=== PATIENT | female | born 2000 | race Caucasian/White ===

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

== ENCOUNTER 2020-11-17 13:21 | Emergency (ER) | payer MEDICAID, OTHER ==
[~2020-11-17] VITALS: Ht 157.5 cm; Wt 86.2 kg
[2020-11-17 13:35] VITALS: BP 146/93
--- NOTE | 2020-11-17 13:40 | NUR ---
ARRIVAL PATIENT ARRIVED TO ED8 AMBULATORY, C/O VAGINAL BLEEDING FOR THE PAST 3 DAYS, DID HAVE A POSITIVE AT THE [facility] THIS LAST WEEK, WITH LMP BEING October, HAS PASSED 3-4 BLOOD CLOTS TODAY, DECIDED TO COME TO THE ED FOR EVAL, DOCTOR AU NOTIFIED OF PATIENT'S ARRIVAL.
[2020-11-17 13:43] LABS: BILIRUBIN,URINE NEGATIVE (NEGATIVE); UA COLOR YELLOW; UROBILINOGEN,URINE 0.2 E.U./dL (0.2)
[2020-11-17 14:35] VITALS: BP 146/74
--- NOTE | 2020-11-17 15:12 | ER.PDOC ---
General Chief Complaint: less 20 wks Stated Complaint: 4 WKS PREG; BLEEDING Time seen by MD: 13:40 Source: patient Exam Limitations: no limitations History of Present Illness Initial Comments [id number] female comes in with complaint of spotting. It started yesterday. She does denies any pain with this. In fact she denies any genitourinary complaints except for the spotting. She states that she is 4 weeks by dates. She had a positive test that she did just last week. 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 I recommended that with the spotting she needs to see them much sooner. She does not know her blood type and Rh so we will check that and will check a beta hCG and a UA. She has no other symptomatology at all except for the spotting Timing/Duration: this morning Severity/Quality: mild Vaginal Bleed: abnormal bleeding, spotting Test: home Care: none Sexual [place] History: single partner Contraceptive: none Associated Symptoms: denies symptoms Allergies: Coded Allergies: No Known Allergies (Unverified , 11/17/20) Past Medical History Medical History: no pertinent history Surgical History: no surgical history Social History Smoking: non-smoker Alcohol Use: none Drug Use: none Review of Systems Genitourinary: see HPI All Other Systems: Reviewed and Negative Physical Exam General Appearance: No Apparent Distress, WD/WN EENT: eyes nml inspection, nml ENT inspection, pharynx nml Neck: nml inspection, non-tender Cardiovascular/Respiratory: Regular Rate, Rhythm, No M/R/G, Normal Peripheral Pulses, No JVD, Normal Breath Sounds, No Respiratory Distress Abdomen: Normal Bowel Sounds, Non Tender, Soft, No Organomegaly, No Pulsatile Mass Extremities: Normal Range of Motion, Non-Tender, Normal Inspection, No Pedal Edema, No Calf Tenderness, Normal Capillary Refill 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, No Motor/Sensory Deficits, Alert, Normal Mood/Affect, Oriented x 3 Skin: Normal Color, Warm/Dry Lymphatic: No Adenopathy Results/Orders Results/Orders Orders - PREM AU MD Urinalysis (11/17/20 13:29) Hcg Urine (11/17/20 13:29) Abo/Rh Type (11/17/20 13:41) Hcg, Quantitative (11/17/20 13:41) Urine Culture (11/17/20 13:29) Vital Signs Date Time Temp Pulse Resp B/P (MAP) Pulse Ox O2 Delivery O2 Flow Rate FiO2 11/17/20 14:35 98.6 81 18 146/74 (98) 99 Room Air 11/17/20 13:35 98.6 80 18 96 11/17/20 13:35 98.6 80 18 11/17/20 13:35 98.6 80 18 146/93 (110) 96 Room Air Laboratory Tests Test 11/17/20 13:29 11/17/20 13:56 Urine Collection Type RANDOM Urine Color YELLOW Urine Appearance CLEAR Urine Bilirubin NEGATIVE (NEGATIVE) Urine Ketones NEGATIVE (NEGATIVE) Urine Specific [place] 1.025 (1.005-1.030) Urine pH 6.5 (4.5-8.0) Urine Protein NEGATIVE (NEGATIVE) Urine Urobilinogen 0.2 E.U./dL (0.2) Urine Nitrate NEGATIVE (NEGATIVE) Urine Leukocyte Esterase SMALL (NEGATIVE) H Urine Glucose (Auto)(UA) NEGATIVE (NEGATIVE) Urine Blood LARGE (NEGATIVE) H Urine RBC 0-2 RBC/HPF (NONE SEEN) Urine WBC 10-25 WBC/HPF (0-2) H Urine Squamous Epithelial Cells MANY #/HPF (FEW) Urine Bacteria FEW (NONE SEEN) H Urine HCG, Qualitative POSITIVE (NEGATIVE) Human Chorionic Gonadotropin, Quant 3512 mIU/mL Blood Bank Test 11/17/20 13:56 Blood Type A POSITIVE Progress Progress Diagnostic studies: Her beta hCG is 3212 which is consistent with her dates. With a normal range of 800-10,000.This 66-year-old female comes in with a complaint of chest pain that started about 6:00 this morning it was tightness or pressure across her chest with aching in her jaw. This started about 6 AM this morning and has been fairly constant at about a 5 on a 10 scale. She stated that it gotten into her shoulders and down her arms about to the elbow shortly after arriving here. I gave her a nitro at 07 37. And0-2 RBCs.And her blood type is a positive.Patient was instructed to follow-up with her OB GEN doctor this week. We will place her on Macrodantin for 5 days for this possible bladder infection. ER DEPART Departure Time of Disposition: 15:11 Disposition: 01 HOME / SELF CARE / HOMELESS Impression: Primary Impression: Threatened Additional Impression: Urinary tract infection Condition: Improved Referrals: SONIA STONE PA-C (PCP) PRIMARY CARE PROVIDER Comments Macrodantin 100 mg twice daily x5 days Duration or Time Spent with Pa: 15m Problem Qualifiers PREM AU MD Nov 17, 2020 15:12
== END 2020-11-17 15:14 | disposition home or self-care (01) ==
LOC: ER 13:30
DX: O23.41 Unspecified infection of urinary tract in pregnancy, first trimester (principal); O20.0 Threatened abortion; Z3A.01 Less than 8 weeks gestation of pregnancy
CPT/HCPCS: 36415; 81001; 81025; 84702; 86900; 87086; 99283

== ENCOUNTER 2022-06-05 14:15 | Emergency (ER) | payer OTHER ==
[~2022-06-05] VITALS: Ht 157.5 cm; Wt 80.7 kg
[2022-06-05 14:18] VITALS: BP 127/72
--- NOTE | 2022-06-05 14:18 | NUR ---
ARRIVAL PATIENT ARRIVED TO ED5 AMBULATORY, C/O RIGHT SIDED NECK AND LEFT SHOULDER PAIN SINCE GETTING OUT OF BED THIS MORNING, DID TAKE TYLENOL BUT UNSURE OF ABOUT WHAT TIME, PAIN WITH RANGE OF MOTION, DECIDED TO COME TO THE ED FOR EVAL, VITAL SIGNS TAKEN AND DOCTOR NOTIFIED OF PATIENT'S ARRIVAL.
[2022-06-05] MEDS ORDERED: TORADOL ONE (15:03)
[2022-06-05] MEDS ORDERED: ROBAXIN ONE (15:03)
[2022-06-05] MEDS ORDERED: BENADRYL ONE (15:03)
[2022-06-05] MEDS: TORADOL IM STA (15:10)
[2022-06-05] MEDS: ROBAXIN PO STA (15:10)
[2022-06-05] MEDS: BENADRYL IM STA (15:10)
[2022-06-05] MEDS ORDERED: ZOFRAN ODT ONE (15:45)
[2022-06-05] MEDS ORDERED: LIDODERM TP ONE (15:45)
[2022-06-05] MEDS ORDERED: NORCO 5MG PO ONE (15:46)
[2022-06-05] MEDS: ZOFRAN ODT SL STA (15:50)
[2022-06-05] MEDS: LIDODERM TP STA (15:50)
[2022-06-05] MEDS: NORCO 5MG PO STA (15:51)
[2022-06-05] MEDS: COGENTIN IM STA (16:22)
--- NOTE | 2022-06-05 16:39 | ER.PDOC ---
General Chief Complaint: Neck/Upper back Pain Stated Complaint: NECK/SHOULDER PAIN Time seen by MD: 14:20 Source: patient Exam Limitations: no limitations History of Present Illness Initial Comments Patient is a 22-year-old femaleWith a past medical history of anxiety depression a and a tubal who comes in with torticollis directed towards the left with the pain on the right of her neck and shoulders that she woke up with this morning. Patient states that it is a 7 out of 10 it is a sort of sharp in nature pain made worse when she tries to move her neck and nothing makes it better. She denies any other symptoms or concerns at this time. Allergies: Coded Allergies: No Known Allergies (Unverified , 11/17/20) Past Medical History Medical History: no pertinent history Surgical History: , tubal Family History Significant Family History: no pertinent family hx Social History Smoking: non-smoker Alcohol Use: none Drug Use: none Reviewed Nursing Reviewed: Vital Signs, Abn. Noted, Nursing Assessment Review of Systems Constitutional: no symptoms reported EENTM: no symptoms reported Respiratory: no symptoms reported Cardiovascular: no symptoms reported Gastrointestinal: no symptoms reported Genitourinary: no symptoms reported Musculoskeletal: muscle pain, muscle stiffness, neck pain Skin: no symptoms reported Psychiatric/Neurological: no symptoms reported Physical Exam General Appearance: Anxious HEENT: PERRL/EOMI, Normal ENT Inspection, TMs Normal, Pharynx Normal Neck: Other (Torticollis directed the patient's left with pain on the right definitely can palpate muscle spasms of the right-sided trapezius muscle) Cardiovascular/Respiratory: Regular Rate, Rhythm, No M/R/G, Normal Peripheral Pulses, No JVD, Normal Breath Sounds, No Respiratory Distress Gastrointestinal: Normal Bowel Sounds, No Organomegaly, No Pulsatile Mass, Non Tender, Soft Back: Normal Inspection, No CVA Tenderness, No Vertebral Tenderness Extremities: No Evidence of Injury, Normal Range of Motion, Non-Tender, No Pedal Edema, Pelvis Stable Neuro/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: Alert, 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, mood/effect nml, No Motor/Sensory Deficits, Relexes nml Skin: Normal Color, Warm/Dry Results/Orders Results/Orders Orders - ELISHA DENISE MD Ketorolac Tromethamine (Toradol) (06/05/22 14:50) Diphenhydramine Hcl (Benadryl) (06/05/22 14:50) Methocarbamol (Robaxin) (06/05/22 14:50) Diphenhydramine Hcl (Benadryl) (06/05/22 15:03) Methocarbamol (Robaxin) (06/05/22 15:03) Ketorolac Tromethamine (Toradol) (06/05/22 15:03) Hydrocodone/Acetaminophen ([place] 5mg) (06/05/22 15:37) Ondansetron (Zofran Odt) (06/05/22 15:37) Lidocaine (Lidoderm) (06/05/22 15:37) Lidocaine (Lidoderm) (06/05/22 15:45) Ondansetron (Zofran Odt) (06/05/22 15:45) Hydrocodone/Acetaminophen ([place] 5mg) (06/05/22 15:46) Benztropine Mesylate (Cogentin) (06/05/22 16:01) Vital Signs Date Time Temp Pulse Resp B/P (MAP) Pulse Ox O2 Delivery O2 Flow Rate FiO2 06/05/22 14:18 97.8 101 20 100 06/05/22 14:18 97.8 101 20 127/72 (90) 100 Room Air* 0 21 06/05/22 14:18 97.8 101 20 Administered Medications Medications (Trade) Dose Ordered Sig/Isabell Route PRN Reason Start Time Stop Time Status Last Admin Dose Admin Acetaminophen/ Hydrocodone Bitart ([place] 5mg) 1 ea OT STAT PO 06/05/22 15:37 06/05/22 15:40 DC 06/05/22 15:51 1 EA Benztropine Mesylate (Cogentin) 2 mg STAT STAT IM 06/05/22 16:01 06/05/22 16:02 DC 06/05/22 16:22 2 MG Diphenhydramine HCl (Benadryl) 50 mg STAT STAT IM 06/05/22 14:50 06/05/22 14:52 DC 06/05/22 15:10 50 MG Ketorolac Tromethamine (Toradol) 15 mg OT STAT IM 06/05/22 14:50 06/05/22 14:52 DC 06/05/22 15:10 15 MG Lidocaine (Lidoderm) 1 patch OT STAT TP 06/05/22 15:37 06/05/22 15:40 DC 06/05/22 15:50 1 PATCH Methocarbamol (Robaxin) 500 mg STAT STAT PO 06/05/22 14:50 06/05/22 14:52 DC 06/05/22 15:10 500 MG Ondansetron HCl (Zofran Odt) 4 mg OT STAT SL 06/05/22 15:37 06/05/22 15:40 DC 06/05/22 15:50 4 MG Progress Progress Patient here with torticollis we will try multimodal pain and other medicationTo help treat this [id number] states that she is starting to feel better however she feelsLike she does still have pain we have given her benztropine Benadryl [place] ketorolac and Lidoderm patches as well as a muscle relaxer Robaxin will dis charge patient with ketorolac Robaxin and Lidoderm patches she voiced understanding when to follow-up and when to return to the ER. ER DEPART Departure Time of Disposition: 16:38 Disposition: 01 HOME / SELF CARE / HOMELESS Impression: Primary Impression: Torticollis Condition: Improved Patient Instructions: Torticollis, Acute Referrals: SONIA STONE PA-C (PCP) PRIMARY CARE PROVIDER Additional Instructions: Follow-up with your primary care provider within the next week. If any new persistent or worsening symptoms or concerns seek medical attention. Please take all medications as prescribed. Duration or Time Spent with Pa: 35 ELISHA DENISE MD Jun 05, 2022 16:39
[2022-06-05 16:43] VITALS: BP 127/72
--- NOTE | 2022-06-05 16:46 | NUR ---
[employer] SAL[employer] CL[employer] PATIENT'S SIGNIFICANT OTHER AT BEDSIDE TO DRIVE HOME. PATIENT AND SIGNIFICANT OTHER BOTH VERBALIZES UNDERSTANDING THAT PATIENT CANNOT DRIVE AFTER HAVING MEDICATIONS GIVEN IN ER, SO SIGNS DISCHARGE PAPERWORK ALONG WITH PATIENT.
== END 2022-06-05 16:46 | disposition home or self-care (01) ==
LOC: ER 14:15
DX: M43.6 Torticollis (principal); Z98.51 Tubal ligation status; Z98.890 Other specified postprocedural states
CPT/HCPCS: 99284; 96372; J2800; J1200; J1885; J0515

== ENCOUNTER 2023-01-14 11:45 | Emergency (ER) | payer SELFPAY ==
[~2023-01-14] VITALS: Ht 157.5 cm; Wt 81.6 kg
[2023-01-14 11:45] VITALS: BP 156/85; PULSE 94; RESP 18; TEMP 98; O2SAT 98
[2023-01-14 13:03] VITALS: BP 121/82; PULSE 85; RESP 18; TEMP 98; O2SAT 98
[2023-01-14 13:08] LABS: BILIRUBIN,URINE NEGATIVE (NEGATIVE); LEUKOCYTE ESTERASE ,URINE 3+ (NEGATIVE); NITRATE,URINE NEGATIVE (NEGATIVE); UROBILINOGEN,URINE 0.2 E.U./dL (0.2)
[2023-01-14 13:11] LABS: APPEARANCE,URINE CLOUDY; UA COLOR YELLOW
== END 2023-01-14 13:28 | disposition home or self-care (01) ==
LOC: ER 11:45
DX: N39.0 Urinary tract infection, site not specified (principal); Z98.51 Tubal ligation status; Z98.890 Other specified postprocedural states
CPT/HCPCS: 81001; 81025; 87086; 99283

== ENCOUNTER 2023-02-20 17:28 | Emergency (ER) | payer SELFPAY ==
[~2023-02-20] VITALS: Ht 172.7 cm; Wt 81.6 kg
[2023-02-20 17:28] VITALS: BP 142/83; PULSE 73; RESP 16; TEMP 98.6; O2SAT 95
[2023-02-20 17:54] VITALS: BP 133/69; PULSE 77; RESP 16; TEMP 98.6; O2SAT 95
== END 2023-02-20 17:59 | disposition home or self-care (01) ==
LOC: ER 17:28
DX: R59.0 Localized enlarged lymph nodes (principal); Z98.51 Tubal ligation status; Z98.890 Other specified postprocedural states
CPT/HCPCS: 99282

== ENCOUNTER 2023-05-14 09:41 | Emergency (ER) | payer SELFPAY ==
[~2023-05-14] VITALS: Ht 157.5 cm; Wt 90.7 kg
[2023-05-14 09:52] VITALS: BP 129/84; PULSE 89; RESP 18; TEMP 98.4; O2SAT 99
[2023-05-14 10:03] LABS: BILIRUBIN,URINE NEGATIVE (NEGATIVE); LEUKOCYTE ESTERASE ,URINE 2+ (NEGATIVE); NITRATE,URINE NEGATIVE (NEGATIVE); UROBILINOGEN,URINE 0.2 E.U./dL (0.2)
[2023-05-14 10:18] LABS: BASOPHIL % 0.1 % (0.0-0.2); EOSINOPHIL # 0.1 10^3/uL (0.0-0.2); EOSINOPHIL % 0.9 % (0.0-5.0); HEMATOCRIT(ML) 38.4 % (36.0-46.0); HEMOGLOBIN 12.5 g/dL (12.0-15.0); LYMPHOCYTES # 1.67 10^3/uL1 (1.0-4.8); LYMPHOCYTES % 14.4 % (24.0-44.0); MEAN CORP HGB 28.4 pg (26-34); MEAN CORP HGB CONCENTRATION 32.6 g/dL (33-36.5); MEAN CORP VOLUME 87.3 fL (78-100); MONOCYTES # 0.6 10^3/uL (0.3-0.8); MONOCYTES % 5.4 % (5.0-12.0); NEUTROPHIL # 9.2 10^3/uL (1.8-7.7); NEUTROPHILS % 78.9 % (41.0-85.0); PLATELET COUNT 320 10^3/uL (150-400); RED CELL DISTRIBUTION WIDTH 13.6 % (11.5-14.5); WHITE BLOOD CELL 11.6 10^3/uL (4.5-11.0)
[2023-05-14 10:19] LABS: +ADD MANUAL DIFF(NO CHRG) NO
[2023-05-14 10:33] LABS: ALBUMIN/GLOBULIN RATIO 0.652; ANION GAP 12.8; BUN/CREATININE RATIO 9.52 (10.0-20.0); CALCIUM 8.8 mg/dL (8.4-10.5); CREATININE SERUM 0.84 mg/dL (0.59-1.40); POTASSIUM 3.8 mmol/L (3.6-5.2)
[2023-05-14 10:56] LABS: APPEARANCE,URINE CLOUDY; UA COLOR RED
[2023-05-14 11:37] VITALS: BP 117/68; PULSE 82; RESP 18; TEMP 98.4; O2SAT 99
== END 2023-05-14 11:40 | disposition home or self-care (01) ==
LOC: ER 09:41
DX: N39.0 Urinary tract infection, site not specified (principal); K52.9 Noninfective gastroenteritis and colitis, unspecified; Z98.51 Tubal ligation status; Z98.890 Other specified postprocedural states
CPT/HCPCS: 36415; 74176; 80053; 81001; 81025; 85025; 87070; 87077; 87086; 87106; 87186; 87426; 87804; 87880; 99284